=== PATIENT | male | born 1965 | race Caucasian/White ===

== ENCOUNTER 2019-02-24 12:22 | Emergency (ER) | payer OTHER ==
--- NOTE | 2019-02-24 12:37 | ERPHSYRPT ---
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 There was elderly gentleman here for chronic wound having a PICC line placed, with the needle used to infiltrate local lidocaine prior to PICC line insertion and then stuck the patient in the tip of the left pinky finger pad. No active bleeding and no other exposures to body fluids occurred. PMH: Patient is a history of hypertension and diabetes Social: Patient denies tobacco - Review of Systems Constitutional: No Fever, No Chills Eyes: No Symptoms Ears, Nose, & Throat: No Symptoms Respiratory: No Cough, No Dyspnea Cardiac: No Chest Pain, No Edema, No Syncope Abdominal/Gastrointestinal: No Abdominal Pain, No Nausea, No Vomiting, No Diarrhea Genitourinary Symptoms: No Dysuria Musculoskeletal: No Back Pain, No Neck Pain Skin: No Rash Neurological: No Dizziness, No Focal Weakness, No Sensory Changes Psychological: No Symptoms Endocrine: No Symptoms All Other Systems: Reviewed and Negative - Past Medical History Pertinent Past Medical History: Yes Cardiac History: Hypertension Endocrine Medical History: Diabetes Type II - Physical Exam General Appearance: no apparent distress, alert Eye Exam: PERRL/EOMI, eyes nml inspection Ears, Nose, Throat Exam: normal ENT inspection, TMs normal, pharynx normal, moist mucous membranes Neck Exam: normal inspection, non-tender, supple, full range of motion Respiratory Exam: normal breath sounds, lungs clear, No respiratory distress Cardiovascular Exam: regular rate/rhythm, normal heart sounds, normal peripheral pulses Gastrointestinal/Abdomen Exam: soft, normal bowel sounds, No tenderness, No mass Back Exam: normal inspection, normal range of motion, No CVA tenderness, No vertebral tenderness Extremity Exam: normal inspection, normal range of motion, pelvis stable Neurologic Exam: alert, oriented x 3, cooperative, normal mood/affect, nml cerebellar function, nml station & gait, sensation nml, No motor deficits Skin Exam: normal color, warm, dry, No rash Lymphatic Exam: No adenopathy Ordered Tests: Active Orders 24 hr Category Date Time Status Wound Care STAT Care 02/24/19 12:26 Ordered HIV 1/2 SOURCE ONLY Stat Lab 02/24/19 12:31 Ordered - Progress Progress: unchanged Progress Note: very small red dot over the pad of the left pinky were in the needle stuck the patient. Based on the sources history it is unlikely that there is suffering a chronic disease such as hepatitis or HIV. That's a given the type of exposure/ injury pattern the discussion was had with the patient of the risks and benefits of possible HIV postexposure prophylaxis. Given his exposure the CBC with state that he is less than half percent likely less than 0.3% at risk of HIV exposure/conversion to a. Given the likely side effects over a 28 day course of postexposure prophylaxis including possibly muscle aches nausea vomiting abdominal pain diarrhea or otherwise the patient declined treatment at this time which I believe is quite reasonable. His labs and the source patient' s labs will be sent off the patient will be contacted should there be any further concerns at this time. Patient in the condition for discharge. 02/24/19 12:33 - Departure Departure Disposition: Home Clinical Impression: Needle stick injury of finger Condition: Good Critical Care Time: No Additional Instructions: You will be contacted if the patient's labs returned abnormal.
[2019-02-24] MEDS ORDERED: Adacel Vial IM ONE ×2 (12:40→12:44)
[2019-02-24 13:06] VITALS: BP 168/93; PULSE 87; O2SAT 96
[2019-02-25 09:24] LABS: HIV Antigen/Antibody Combo Non Reactive (Non Reactive); Hepatitis B Sur Ag Screen Non Reactive (Non Reactive); Hepatitis B Surface Ab.Quant <3.50 mIU/mL (0.00-8.49); Hepatitis C Antibody by EIA Non Reactive (Non Reactive)
== END 2019-02-24 13:09 | disposition home or self-care (01) ==
LOC: ER - EH 12:22
DX: S61.236A Puncture wound without foreign body of right little finger without damage to nail, initial encounter (principal); W46.0XXA Contact with hypodermic needle, initial encounter; Y93.F9 Activity, other caregiving; Y92.239 Unspecified place in hospital as the place of occurrence of the external cause; Y99.0 Civilian activity done for income or pay
CPT/HCPCS: 36415; 86317; 86701; 86702; 86803; 87340; 87389; 90471; 90715; 99283

== ENCOUNTER 2024-02-28 10:08 | Emergency (ER) | payer OTHER ==
--- NOTE | 2024-02-28 10:10 | ERPHSYRPT ---
- History of Present Illness Time Seen by Provider: 02/28/24 10:10 Source: patient Exam Limitations: no limitations Physician History: This is a 58-year-old white male patient who arrives to the emergency department by private vehicle on his own for evaluation management of left shoulder/left posterior scapular pain with movement and stretching. Onset was approximately 2 days ago without any specific injury or trauma. The pain worsens with movement. It is described as an ache. He had similar finding in the past with his right shoulder/scapular area. Patient denies chest pain. He has no shortness of breath. He declines any type of chest x-ray or x-ray of the left shoulder. The patient has a history gastroesophageal reflux disease, hypertension, diabetes, hyperlipidemia and depression. He has no known history of coronary artery disease. Occurred: days ago (2) Method of Injury: other (No known injury) Quality: aching Severity of Pain-Max: mild (To moderate) Severity of Pain-Current: mild (To moderate) Extremities Pain Location: shoulder: left (And posterior, medial scapular ache) Modifying Factors: Improves With: movement Associated Symptoms: none Home Medications: Aspirin 81 gm Chew [Baby Aspirin 81 mg Chew] 81 mg PO DAILY 02/28/24 [History] Atorvastatin Calcium 20 mg PO DAILY 02/28/24 [History] Escitalopram Oxalate [Lexapro] 10 mg PO DAILY 02/28/24 [History] Lisinopril 10 mg [Zestril 10 MG] 10 mg PO DAILY 02/28/24 [History] Metformin HCl 500 mg [Glucophage 500 MG] 500 mg BID 02/28/24 [History] Metoprolol Succinate 50 mg [Toprol Xl 50 MG] 50 mg DAILY 02/28/24 [History] Pantoprazole 20 mg [Protonix 20MG Tablet] 20 mg PO DAILY 02/28/24 [History] Travel Risk - International Travel Have you traveled outside of the country in past 3 weeks: No - Emerging Infectious Disease Are you exhibiting symptoms associated with any current EIDs: No - Review of Systems Constitutional: No Symptoms Eyes: No Symptoms Ears, Nose, & Throat: No Symptoms Respiratory: No Symptoms Cardiac: No Symptoms Abdominal/Gastrointestinal: No Symptoms Genitourinary Symptoms: No Symptoms Musculoskeletal: Joint Pain (Left shoulder/posterior scapular achiness, spasms with movement) Skin: No Symptoms Neurological: No Symptoms Psychological: No Symptoms Endocrine: No Symptoms Hematologic/Lymphatic: No Symptoms Immunological/Allergic: No Symptoms All Other Systems: Reviewed and Negative - Past Medical History Pertinent Past Medical History: Yes Neurological History: No Pertinent History ENT History: No Pertinent History Cardiac History: No Pertinent History Respiratory History: No Pertinent History Endocrine Medical History: Diabetes Type II Musculoskeletal History: No Pertinent History GI Medical History: No Pertinent History History: No Pertinent History Psycho-Social History: Depression Male Reproductive Disorders: No Pertinent History - Past Surgical History Past Surgical History: No (NO SURGERIES) Neuro Surgical History: No Pertinent History Cardiac: No Pertinent History Respiratory: No Pertinent History Gastrointestinal: No Pertinent History Genitourinary: No Pertinent History Musculoskeletal: No Pertinent History Male Surgical History: No Pertinent History - Social History Smoking Status: Never smoker Exposure to second hand smoke: No Drug Use: none Patient Lives Alone: No - Nursing Vital Signs Nursing Vital Signs: Initial Vital Signs Temperature 97.8 F 02/28/24 11:10 Pulse Rate 58 L 02/28/24 11:10 Respiratory Rate 16 02/28/24 11:10 Blood Pressure 176/94 02/28/24 11:10 O2 Sat by Pulse Oximetry 97 02/28/24 11:10 Pain Scale Pain Intensity 5 - Physical Exam General Appearance: no apparent distress, alert, anxiety Eyes, Ears, Nose, Throat Exam: normal ENT inspection, moist mucous membranes Neck Exam: normal inspection, non-tender, supple, full range of motion Cardiovascular/Respiratory Exam: chest non-tender, no respiratory distress Abdominal Exam: non-tender Back Exam: normal inspection, normal range of motion, No CVA tenderness, No vertebral tenderness Shoulder Exam: normal inspection, no evidence of injury, normal ROM, soft tissue tenderness (Left shoulder) Elbow/Forearm Exam: normal inspection, non-tender, no evidence of injury, normal ROM Wrist Exam: normal inspection, non-tender, no evidence of injury, normal ROM Hand Exam: normal inspection, non-tender, no evidence of injury, normal ROM Neuro/Tendon Exam: normal sensation, normal motor functions, normal tendon functions Mental Status Exam: alert, oriented x 3, cooperative Skin Exam: normal color, warm, dry SpO2 Interpretation: normal O2 Delivery: Room Air - Course Nursing assessment & vital signs reviewed: Yes EKG Interpreted by Me: RATE (59), Sinus Rhythm, NORMAL AXIS, NORMAL INTERVALS, NORMAL QRS, Other (No acute ischemic changes on today's twelve-lead EKG. QTc is 437) Ordered Tests: Active Orders 24 hr Category Date Time Status EKG-ER Only STAT Care 02/28/24 12:18 Active IV Insertion STAT Care 02/28/24 12:24 Active BMP Stat Lab 02/28/24 11:10 Completed MAGNESIUM Stat Lab 02/28/24 11:10 Completed TROPONIN Q4H Lab 02/28/24 11:10 Completed TROPONIN Q4H Lab 02/28/24 16:30 Ordered TROPONIN Q4H Lab 02/28/24 20:30 Ordered Medication Summary Discontinued Medications Generic Name Dose Route Start Last Admin Trade Name Freq PRN Reason Stop Dose Admin Methylprednisolone Sodium 0 mg 02/28/24 12:20 02/28/24 12:30 Succinate 125 mg/ Sterile IV 02/28/24 12:21 125 mg Water 2 ml STAT ONE Administration Orphenadrine Citrate 100 mg 02/28/24 12:19 02/28/24 12:30 Orphenadrine Citrate 100 Mg Er Tab PO 02/28/24 12:20 100 mg STAT ONE Administration Oxycodone/Acetaminophen 1 tab 02/28/24 12:18 02/28/24 12:30 Oxycodone / Apap 10/325 Mg 1 Tablet PO 02/28/24 12:19 1 tab STAT STA Administration Lab/Rad Data: Laboratory Result Diagrams 02/28/24 11:10 Laboratory Results 02/28/24 02/28/24 Range/Units 11:10 11:10 Sodium 139 (135-145) mmol/L Potassium 4.6 (3.5-5.1) mmol/L Chloride 105 (98-107) mmol/L Carbon Dioxide 29 (22-30) mmol/L Anion Gap 10.5 (5-15) MEQ/L BUN 29 H (9-20) mg/dL Creatinine 0.96 (0.66-1.25) mg/dL Estimated GFR 91.6 ML/MIN Glucose 133 H (74-106) mg/dL Calcium 9.4 (8.4-10.2) mg/dL Magnesium 2.0 (1.6-2.3) mg/dL Troponin I < 0.012 (0.000-0.033) ng/mL - Progress Progress: improved, pain not gone completely, re-examined Progress Note: 02/28/24 12:43 My medical decision making and the assignment of moderate complexity to this patient's medical issue today is based on review of the patient's past medical history, review the patient's medication list, reviewed patient drug allergy list, history present illness and physical findings on examination. The workup in this patient includes placement of intravenous line, BMP, magnesium level, troponin level, twelve-lead EKG. The patient refuses x-ray. Differential diagnosis includes but is not limited to muscle spasm, left shoulder strain, electrolyte abnormalities, arrhythmia, myocardial infarction 02/28/24 13:37 Interpreted the patient's laboratory data results. Based on the laboratory data results, the patient has no acute, emergent medical issue. Counseled pt/family regarding: lab results, diagnosis, need for follow-up Medical Desision Making - Independent Historian Additional History obtained from: Spouse - Diagnostic Testing Diagnostic test were ordered, analyzed, and reviewed by me: Yes - Risk of complications The pt has a mod risk of morbidity or mortality based on: Need for prescription drug management - Departure Departure Disposition: Home Clinical Impression: Muscle spasm Condition: Stable Critical Care Time: No Referrals: DOCTOR,NO FAMILY [Primary Care Provider] - Follow up/PCP as directed Additional Instructions: Take your medications as prescribed. Monitor your blood sugar closely while taking the steroids. Call your prescribing provider on 03/01/2024, to make arrangement for follow-up appointment to be seen in the next 3 to 5 days. Prescriptions: Prednisone 10 mg [Deltasone 10 mg] 10 mg PO TID #12 tablet Orphenadrine Citrate 100 mg [Norflex 100 MG Tablet] 100 mg PO BID #10 tab
[2024-02-28 11:22] VITALS: TEMP 97.8
[2024-02-28 12:18] VITALS: O2SAT 96
[2024-02-28] MEDS: Norflex 100 MG Tablet PO ONE (12:30)
[2024-02-28] MEDS: OXYCODONE-ACETAMINOPHEN 10-325 PO STA (12:30)
[2024-02-28] MEDS: solu-MEDROL 125 MG, Sterile H2O 10 ml 2 ML IV ONE (12:30)
[2024-02-28 12:31] LABS: ANION GAP 10.5 MEQ/L (5-15); Calcium 9.4 mg/dL (8.4-10.2); Creatinine 1 0.96 mg/dL (0.66-1.25); EST GLOMERULAR FILTRATION RATE 91.6 ML/MIN; Potassium 4.6 mmol/L (3.5-5.1)
[2024-02-28 13:27] VITALS: BP 154/75; PULSE 55; RESP 18
== END 2024-02-28 14:00 | disposition home or self-care (01) ==
LOC: ED 10:08
DX: M62.838 Other muscle spasm (principal); M25.512 Pain in left shoulder; I10 Essential (primary) hypertension; E11.9 Type 2 diabetes mellitus without complications; E78.5 Hyperlipidemia, unspecified; Z79.52 Long term (current) use of systemic steroids; Z79.84 Long term (current) use of oral hypoglycemic drugs; Z79.899 Other long term (current) drug therapy
CPT/HCPCS: 36415; 80048; 83735; 84484; 93005; 96374; 99284; J2919; A9270-GY